=== PATIENT | female | born 1940 | race Caucasian/White ===

== ENCOUNTER 2018-01-19 18:14 | Emergency (ER) | payer OTHER, MEDICARE ==
[~2018-01-19] VITALS: Ht 154.9 cm; Wt 48.2 kg
[2018-01-19] MEDS ORDERED: METOPROLOL SUCC50 MG PO (18:39)
[2018-01-19] MEDS ORDERED: KEFLEX500 M1 PO ×2 (20:16→20:18)
[2018-01-19] MEDS ORDERED: IBUPROFEN 600600 M1 PO (20:17)
[2018-01-19] MEDS ORDERED: CIPRO500 MG PO ×2 (20:17→20:18)
[2018-01-19 20:30] VITALS: BP 158/77
== END 2018-01-19 20:30 | disposition home or self-care (01) ==
LOC: M.ERS 18:14
DX: S62.630B Displaced fracture of distal phalanx of right index finger, initial encounter for open fracture (principal); Z88.8 Allergy status to other drugs, medicaments and biological substances; W22.8XXA Striking against or struck by other objects, initial encounter; Y93.89 Activity, other specified; Y92.89 Other specified places as the place of occurrence of the external cause; Y99.8 Other external cause status